=== PATIENT | male | born 1985 | race Caucasian/White ===

== ENCOUNTER 2023-08-10 11:28 | Emergency (ER) | payer SELFPAY ==
[2023-08-10 12:43] LABS: BASOPHILS ABSOLUTE AUTO 0.06 K/uL (0.00-0.20); BASOPHILS PERCENT AUTO 0.9 % (0.0-1.0); EOSINOPHILS ABSOLUTE AUTO 0.31 K/uL (0.00-0.45); EOSINOPHILS PERCENT AUTO 4.8 % (0.0-6.0); HEMATOCRIT 48.6 % (42.0-52.0); HEMOGLOBIN 17.8 g/dL (14.0-18.0); IMMATURE GRAN ABSOLUTE AUTO 0.02 K/uL (0.00-0.05); IMMATURE GRAN PERCENT AUTO 0.3 % (0.0-0.4); LYMPHOCYTES ABSOLUTE AUTO 1.67 K/uL (1.00-4.80); LYMPHOCYTES PERCENT AUTO 26.1 % (24.0-44.0); MEAN CORPUSCULAR HEMOGLOBIN 30.7 pg (28.0-32.0); MEAN CORPUSCULAR HGB CONC 36.6 g/dL (32.0-36.0); MEAN CORPUSCULAR VOLUME 83.9 fL (83.0-99.0); MEAN PLATELET VOLUME 9.3 fL (9.4-12.4); MONOCYTES ABSOLUTE AUTO 0.75 K/uL (0.00-0.80); MONOCYTES PERCENT AUTO 11.7 % (0.0-8.0); NEUTROPHILS ABSOLUTE AUTO 3.59 K/uL (1.80-7.70); NEUTROPHILS PERCENT AUTO 56.2 % (41.0-71.0); PLATELET COUNT,PLT 218 K/uL (150-400); RED BLOOD CELL COUNT 5.79 M/uL (4.52-5.90)
[2023-08-10 12:44] LABS: BASE EXCESS VENOUS 2.8 (-2.0-3.0); PH,VENOUS 7.42 (7.31-7.41)
[2023-08-10 13:14] LABS: A/G RATIO 1.1 (0.9-1.6); ALANINE AMINOTRANSFERASE,ALT 60 IU/L (14-63); ALBUMIN 3.8 g/dL (3.4-5.0); ALKALINE PHOSPHATASE 88 U/L (46-116); ASPARTATE AMNIOTRANSFERASE,AST 31 IU/L (15-37); BILIRUBIN TOTAL 1.8 mg/dL (0.2-1.0); BLOOD UREA NITROGEN,BUN 20 mg/dL (7.0-18.0); CALCIUM 9.1 mg/dL (8.5-10.1); CARBON DIOXIDE,CO2 30.2 mmol/L (21.0-32.0); CHLORIDE,CL 104 mmol/L (98-107); CREATININE 1.2 mg/dL (0.8-1.3); EST CRCL DRUG DOSING (CG) 102.47 mL/min; ETHANOL BLOOD MEDICAL <3 mg/dL; GLUCOSE RANDOM 107 mg/dL (74-106); POTASSIUM,K 3.8 mmol/L (3.5-5.1); PROTEIN TOTAL,TP 7.2 g/dL (6.4-8.2); SODIUM,NA 141 mmol/L (136-148); TSH ULTRASENSITIVE 1.31 uIU/mL (0.36-3.74)
[2023-08-10 13:19] LABS: ESTIMATED GFR 79 mL/min (>60)
== END 2023-08-10 13:56 | disposition home or self-care (01) ==
LOC: MW.ED 11:28
DX: Z13.9 Encounter for screening, unspecified (principal)
CPT/HCPCS: 36415; 80053; 80307; 82803; 83735; 84443; 84484; 85025; 93005; 99283